=== PATIENT | male | born 1970 ===

== ENCOUNTER 2017-05-01 18:55 | Inpatient (IN) | payer OTHER ==
--- NOTE | 2017-05-01 19:20 | C.PDOC ---
History Of Present Illness Pt presents with some right facial droop starting since 9AM. Pt has also been having a headache for the last 2 days. No nausea, vomiting, chest pain, palpitations. Time Seen by Provider: 05/01/17 19:16 Chief Complaint (Nursing): Weakness/Neurological Deficit History Per: Patient History/Exam Limitations: no limitations Onset/Duration Of Symptoms: Hrs (10), Gradual Current Symptoms Are (Timing): Still Present Seizure Or Post-ictal Symptoms: None Severity: Mild Pain Scale Rating Of: 2 Recent travel outside of the [facility]: No Additional History Per: Patient - Symptoms Of CVA Associated Symptoms: denies: Impaired Speech, Decreased Ability To Walk Character Of Deficits: Right: Weakness (mild right facial droop), Face: Weakness Recent Aspirin Use: No Current Coumadin Use?: No Recent Head Trauma: No Past Medical History Reviewed: Historical Data, Nursing Documentation, Vital Signs Vital Signs: Last Vital Signs Temp 98.1 F 05/01/17 19:08 Pulse 71 05/01/17 19:08 Resp 18 05/01/17 19:08 BP 148/89 05/01/17 19:08 Pulse Ox 97 05/01/17 21:24 - Medical History PMH: Denies: Chronic Kidney Disease Family History: States: No Known Family Hx - Social History Hx Alcohol Use: No Hx Substance Use: No Review Of Systems Constitutional: Negative for: Fever, Chills Eyes: Negative for: Redness ENT: Negative for: Throat Pain Cardiovascular: Negative for: Chest Pain Respiratory: Negative for: Shortness of Breath Gastrointestinal: Negative for: Nausea, Vomiting, Abdominal Pain Genitourinary: Negative for: Dysuria Musculoskeletal: Negative for: Back Pain Skin: Negative for: Rash Neurological: Positive for: Headache. Negative for: Altered Mental Status, Dizziness Psych: Negative for: Anxiety Physical Exam - Physical Exam Appears: Non-toxic, No Acute Distress Skin: Warm, Dry Head: Normacephalic Eye(s): bilateral: Normal Inspection, PERRL, EOMI Nose: Normal Oral Mucosa: Moist Tongue: Normal Appearing Throat: No Erythema Neck: Trachea Midline, Supple Chest: Symmetrical Cardiovascular: Rhythm Regular Respiratory: No Rales, No Rhonchi, No Wheezing Gastrointestinal/Abdominal: Soft, No Tenderness, No Distention Back: Normal Inspection Extremity: No Tenderness, No Pedal Edema Extremity: Bilateral: Atraumatic, Normal Color And Temperature, Normal ROM Pulses: Left Dorsalis Pedis: Normal, Right Dorsalis Pedis: Normal Neurological/Psych: Oriented x3, Normal Speech, Normal Cognition, Normal Sensation, Other (mild right facial droop) Gait: Steady ED Course And Treatment - Laboratory Results Result Diagrams: 05/01/17 19:56 05/01/17 19:56 O2 Sat by Pulse Oximetry: 97 Pulse Ox Interpretation: Normal - Radiology CXR: Interpreted by Me, Viewed By Me CXR Interpretation: No: Infiltrates, Fracture, Pnemothorax Critical Care Time - Critical Care Note Total Time (in mins): 30 Documented critical care: time excludes all time spent performing seperately billable procedures. NIHSS Stroke Scale 2 - Date/Time Evaluation Performed Date Performed: 05/01/17 Time Performed: 19:01 When Was NIHSS Performed: Baseline - How Severe is the Stroke Level of Consciousness: 0=Alert LOC to Questions: 0=Both comments correct LOC to commands: 0=Obeys both correctly Best Gaze: 0=Normal Visual: 0=No visual loss Facial: 1=Minor asymmetry Motor Arm - Left: 0=No drift Motor Arm - Right: 0=No drift Motor Leg - Left: 0=No drift Motor Leg - Right: 0=No drift Limb Ataxia: 0=Absent Sensory: 0=Normal Best Language: 0=No aphasia Dysarthia: 0=Normal articulation Extinction & Inattention (Neglect): 0=Normal, no object Score: 1 Medical Decision Making Medical Decision Making: Progress Notes: CT Head: IMPRESSION: No acute findings. Disposition Discussed With : Alcon Davison Comment: accepted the pt on his service and took over the care at 12:29AM Doctor Will See Patient In The: ED Counseled Patient/Family Regarding: Studies Performed, Diagnosis - Disposition Disposition: HOSPITALIZED Disposition Time: 19:20 Condition: FAIR Forms: [employer] ([place]) - POA Present On Arrival: Poor Glycemic Control - Clinical Impression Clinical Impression: TIA (transient ischemic attack), Headache Decision To Admit - Pt Status Changed To: Hospital Disposition Of: Inpatient - Admit Certification Admit to Inpatient:: After my assessment, the patient will require hospitalization for at least two midnights. This is because of the severity of symptoms shown, intensity of services needed, and/or the medical risk in this patient being treated as an outpatient. - InPatient: Physician Admission Certification: I certify that this patient requires 2 or more midnights of care for the following reason:: After my assessment, the patient will require hospitalization for at least two midnights. This is because of the severity of symptoms shown, intensity of services needed, and/or the medical risk in this patient being treated as an outpatient. - . Bed Request Type: Telemetry Admitting Physician: Alcon Davison Patient Diagnosis: TIA (transient ischemic attack), Headache
[2017-05-01] MEDS ORDERED: Iodixanol 320 MG/ML 100 ML BOTTLE IV ONE (19:21)
[2017-05-01 20:01] LABS: BASO # 0.1 K/uL (0.0-0.2); BASO % 0.9 % (0.0-2.0); EOS # 0.4 K/uL (0.0-0.7); EOS % 5.5 % (0.0-4.0); HEMOGLOBIN 15.2 g/dL (12.0-18.0); LYMPH # 2.1 K/uL (1.0-4.3); MEAN CELL VOLUME 84.3 fL (80.0-94.0); MEAN CORPUSCULAR HEMOGLOBIN 29.4 pg (27.0-31.0); MEAN CORPUSCULAR HGB CONC 34.9 g/dL (33.0-37.0); MEAN PLATELET VOLUME 9.6 fL (7.2-11.7); MONO # 0.6 K/uL (0.0-0.8); MONO % 8.7 % (0.0-10.0); NEUT # 3.9 K/uL (1.8-7.0); NEUT % 54.9 % (50.0-75.0); NRBC % 0.2 % (0.0-2.0); RBC 5.17 Mil/uL (4.40-5.90); RED CELL DISTRIBUTION WIDTH 13.3 % (11.5-14.5); WHITE BLOOD COUNT 7.2 K/uL (4.8-10.8)
[2017-05-01 20:09] LABS: PROTHROMBIN TIME 11.8 SECONDS (9.7-12.2)
[2017-05-01 20:13] LABS: ALB/GLOB RATIO 1.1 (1.0-2.1); ALBUMIN 4.1 g/dL (3.5-5.0); ALT/SGPT 90 U/L (21-72); AST/SGOT 41 U/L (17-59); BLOOD UREA NITROGEN 13 mg/dL (9-20); CALCIUM 8.6 mg/dl (8.6-10.4); GFR AFRICAN-AMERICAN > 60; GFR NON-AFRICAN AMERICAN > 60; HDL CHOLESTEROL 40 mg/dL (30-70)
[2017-05-01 20:14] VITALS: BMI 29.2
--- NOTE | 2017-05-01 20:16 | CT ---
EXAM: CT Head With Intravenous Contrast CLINICAL HISTORY: 46 years old, male; Signs and symptoms; Numbness; Additional info: Numbness, facial droop TECHNIQUE: Axial computed tomography images of the head with intravenous contrast during the arterial phase of enhancement. All CT scans at this facility use one or more dose reduction techniques, viz.: automated exposure control; ma/kV adjustment per patient size (including targeted exams where dose is matched to indication; i.e. head); or iterative reconstruction technique. Coronal and sagittal reformatted images were created and reviewed. CONTRAST: 100 mL of [id number] administered intravenously. COMPARISON: No relevant prior studies available. FINDINGS: Right internal carotid artery: No acute findings. Intracranial segment is patent with no significant stenosis. No aneurysm. Right anterior cerebral artery: Unremarkable. No occlusion or significant stenosis. No aneurysm. Right middle cerebral artery: Unremarkable. No occlusion or significant stenosis. No aneurysm. Right posterior cerebral artery: Unremarkable. No occlusion or significant stenosis. No aneurysm. Right vertebral artery: Unremarkable as visualized. Left internal carotid artery: No acute findings. Intracranial segment is patent with no significant stenosis. No aneurysm. Left anterior cerebral artery: Unremarkable. No occlusion or significant stenosis. No aneurysm. Left middle cerebral artery: Unremarkable. No occlusion or significant stenosis. No aneurysm. Left posterior cerebral artery: Unremarkable. No occlusion or significant stenosis. No aneurysm. Left vertebral artery: Unremarkable as visualized. Basilar artery: Unremarkable. No occlusion or significant stenosis. No aneurysm. Other vasculature: A tiny bubble of air is noted within the main pulmonary artery related to the contrast injection. IMPRESSION: 1. No acute findings. EXAM: CT Neck With Intravenous Contrast EXAM DATE/TIME: Exam ordered 05/01/2017 7:17 PM CLINICAL HISTORY: 46 years old, male; Signs and symptoms; Numbness; Additional info: Numbness, facial droop TECHNIQUE: Axial computed tomography images of the neck with intravenous contrast during the arterial phase of contrast enhancement. All CT scans at this facility use one or more dose reduction techniques, viz.: automated exposure control; ma/kV adjustment per patient size (including targeted exams where dose is matched to indication; i.e. head); or iterative reconstruction technique. CONTRAST: 100 mL of [id number] administered intravenously. COMPARISON: CT - HEAD W/O (CODE STROKE) 2017-05-01 19:22 FINDINGS: VASCULATURE: Right common carotid artery: Unremarkable. No significant stenosis. No dissection or occlusion. Right internal carotid artery: Unremarkable. Extracranial segment is patent with no significant stenosis. No dissection or occlusion. Right external carotid artery: Unremarkable. No occlusion. Right vertebral artery: Unremarkable. No significant stenosis. No dissection or occlusion. Left common carotid artery: Unremarkable. No significant stenosis. No dissection or occlusion. Left internal carotid artery: Unremarkable. Extracranial segment is patent with no significant stenosis. No dissection or occlusion. Left external carotid artery: Unremarkable. No occlusion. Left vertebral artery: Unremarkable. No significant stenosis. No dissection or occlusion. NECK: Bones/joints: No acute fracture. No dislocation. Soft tissues: Unremarkable as visualized. No mass. Sinuses: Mucosal thickening is noted within the maxillary sinuses bilaterally. Mucosal thickening extends into the ethmoid air cells bilaterally and the floor of the frontal sinuses CAROTID STENOSIS REFERENCE USING NASCET CRITERIA: % ICA stenosis = (1 - narrowest ICA diameter/diameter of distal cervical ICA) x 100. Mild - <50% stenosis. Moderate - 50-69% stenosis. Severe - 70-94% stenosis. Near occlusion - 95-99% stenosis. Occluded - 100% stenosis. IMPRESSION: 1. Normal CTA of the neck 2. Chronic sinusitis involving the ethmoid, maxillary and frontal sinuses.
[2017-05-01 20:24] LABS: LDL CHOLESTEROL 114 mg/dL (0-129)
[2017-05-01] MEDS: Sodium Chloride 0.9% 1,000 ML IV SCH (21:00)
--- NOTE | 2017-05-02 03:19 | CP.PCM.HP ---
<RafiSubhashMisty - Last Filed: 05/02/17 03:11> History of Present Illness - History of Present Illness History of Present Illness: CC: right facial numbness HPI: Patient is a 46 year old Mauritian speaking male with no significant PMH who presents to the ED complaining of right facial numbness that started yesterday morning around 9 am while he was at work. Patient says he was not doing anything in particular when he started noticing right eye twitching and numbness from his eye to his cheek. Patient says he has never had this before. It has been unchanged since onset. Patient admits to occipital headache of 2 days duration, for which tylenol provided no relief. Patient admits to associated difficulty in pronouncing words but does not feel like his speech is slurred. He also admits to right shoulder numbness as if it is "asleep". Patient says he occasionally has b/l foot swelling at night but otherwise denies fever, chills, dizziness, changes in vision/hearing, difficulty swallowing, chest pain, SOB, palpitations, abdominal pain, n/v/d/c, changes in urination, and numbness/tingling/weakness/pain in his extremities other than described above. PMH: denies Meds: denies Allergies: denies PSH: cholecystectomy, appendectomy FH: cousin of unknown cancer SH: usually drinks only on special occasions, admits to drinking 4 beers yesterday; denies tobacco and recreational drug use Present on Admission - Present on Admission Any Indicators Present on Admission: No Review of Systems - Review of Systems All systems: reviewed and no additional remarkable complaints except (as per HPI ) Past Patient History - Infectious Disease Hx of Infectious Diseases: None - Past Social History Smoking Status: Never Smoked - CARDIAC Hx Cardiac Disorders: No - PULMONARY Hx Respiratory Disorders: No - NEUROLOGICAL Hx Neurological Disorder: No - HEENT Hx HEENT Problems: No - RENAL Hx Chronic Kidney Disease: No - ENDOCRINE/METABOLIC Hx Endocrine Disorders: No - HEMATOLOGICAL/ONCOLOGICAL Hx Blood Disorders: No - INTEGUMENTARY Hx Dermatological Problems: No - MUSCULOSKELETAL/RHEUMATOLOGICAL Hx Musculoskeletal Disorders: No - GASTROINTESTINAL Hx Gastrointestinal Disorders: No - GENITOURINARY/GYNECOLOGICAL Hx Genitourinary Disorders: No - PSYCHIATRIC Hx Substance Use: No - SURGICAL HISTORY Hx Surgeries: No - ANESTHESIA Hx Anesthesia: No Meds Allergies/Adverse Reactions: Allergies Allergy/AdvReac Type Severity Reaction Status Date / Time No Known Allergies Allergy Verified 05/01/17 19:20 Physical Exam - Constitutional Appears: Non-toxic, No Acute Distress - Head Exam Head Exam: ATRAUMATIC, NORMAL INSPECTION, NORMOCEPHALIC - Eye Exam Eye Exam: EOMI, Normal appearance, PERRL - ENT Exam ENT Exam: Mucous Membranes Moist, Normal Oropharynx - Neck Exam Neck exam: Positive for: Normal Inspection - Respiratory Exam Respiratory Exam: Clear to Auscultation Bilateral, NORMAL BREATHING PATTERN. absent: Accessory Muscle Use, Rales, Rhonchi, Wheezes, Respiratory Distress - Cardiovascular Exam Cardiovascular Exam: RRR, +S1, +S2. absent: Bradycardia, Tachycardia, Diastolic murmur, Gallop, Rubs, Systolic Murmur - GI/Abdominal Exam GI & Abdominal Exam: Normal Bowel Sounds, Soft. absent: Distended, Guarding, Tenderness - Extremities Exam Extremities exam: Positive for: normal capillary refill, normal inspection, pedal pulses present. Negative for: calf tenderness, pedal edema - Back Exam Back exam: NORMAL INSPECTION - Neurological Exam Neurological exam: Alert, Oriented x3 Additional comments: weakness of left orbicularis oculi as compared to the right - Expanded Neurological Exam Expanded Patient oriented to: person, place, time Speech: Fluid Speech Cranial nerves: EOM's Intact: Normal, Facial Palsey w/Forehead Movement: Normal , Facial Palsey w/o Forehead Movement: Normal, Facial Sensation: Abnormal Right (decreased on right) Upper motor neuron: Pronator Drift: Normal, Sensory Extinction: Normal Sensory exam: Lower Extremity Light Touch: Normal, Upper Extremity Light Touch: Normal Neuro motor strength exam: Left Upper Extremity: 5, Right Upper Extremity: 5, Left Lower Extremity: 5, Right Lower Extremity: 5 Coma Scale Eye Opening: SPONTANEOUS Coma Scale Motor Response: OBEYS COMMANDS Coma Scale Verbal: Oriented Coma Scale Total: 15 - Psychiatric Exam Psychiatric exam: Normal Affect, Normal Mood - Skin Skin Exam: Dry, Intact, Normal Color, Warm Results - Vital Signs Recent Vital Signs: Last Vital Signs Temp 98.2 F 05/02/17 00:34 Pulse 56 L 05/02/17 00:34 Resp 16 05/02/17 00:34 BP 138/73 05/02/17 00:34 Pulse Ox 100 05/02/17 00:34 - Labs Result Diagrams: 05/01/17 19:56 05/01/17 19:56 Labs: Laboratory Results - last 24 hr 05/01/17 05/01/17 05/01/17 19:14 19:56 19:56 WBC 7.2 RBC 5.17 Hgb 15.2 Hct 43.6 MCV 84.3 MCH 29.4 MCHC 34.9 RDW 13.3 Plt Count 186 MPV 9.6 Neut % (Auto) 54.9 Lymph % (Auto) 30.0 [place] % (Auto) 8.7 Eos % (Auto) 5.5 H Baso % (Auto) 0.9 Neut # (Auto) 3.9 Lymph # (Auto) 2.1 [place] # (Auto) 0.6 Eos # (Auto) 0.4 Baso # (Auto) 0.1 PT 11.8 INR 1.0 APTT 35 H Sodium Potassium Chloride Carbon Dioxide Anion Gap BUN Creatinine Est GFR ( Amer) Est GFR (Non-Af Amer) POC Glucose (mg/dL) 111 H Random Glucose Calcium Total Bilirubin AST ALT Alkaline Phosphatase Troponin I Total Protein Albumin Globulin Albumin/Globulin Ratio Triglycerides Cholesterol LDL Cholesterol Direct HDL Cholesterol Blood Type Antibody Screen 05/01/17 05/01/17 19:56 19:56 WBC RBC Hgb Hct MCV MCH MCHC RDW Plt Count MPV Neut % (Auto) Lymph % (Auto) [place] % (Auto) Eos % (Auto) Baso % (Auto) Neut # (Auto) Lymph # (Auto) [place] # (Auto) Eos # (Auto) Baso # (Auto) PT INR APTT Sodium 139 Potassium 3.6 Chloride 101 Carbon Dioxide 25 Anion Gap 17 BUN 13 Creatinine 0.8 Est GFR ( Amer) > 60 Est GFR (Non-Af Amer) > 60 POC Glucose (mg/dL) Random Glucose 115 H Calcium 8.6 Total Bilirubin 1.2 AST 41 ALT 90 H Alkaline Phosphatase 84 Troponin I < 0.0120 Total Protein 7.7 Albumin 4.1 Globulin 3.6 Albumin/Globulin Ratio 1.1 Triglycerides 193 H Cholesterol 183 LDL Cholesterol Direct 114 HDL Cholesterol 40 Blood Type O POSITIVE Antibody Screen Negative Assessment & Plan (1) TIA (transient ischemic attack) Assessment and Plan: * ASA 325 mg given in ED * Vitals stable * Admit to telemetry * Neurovascular consulted, Dr. Woodward; help appreciated * Neurology consulted, Dr. 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 * Lipid panel: Trig 193, Chol 183, LDL 114, HDL 40 * HbA1c * Trop <0.0120 - f/u trend * ESR * BNP * CRP * CPK * Thyroid studies * Vitamin B12 Imaging * CT head * CTA Head/Neck: normal * CXR * MRI brain * Echo Meds: * Crestor 2.5 mg PO HS * ASA 81 mg daily Status: Acute (2) Headache Assessment and Plan: * BP stable * Tylenol PRN * Imaging as above Status: Acute (3) Prophylactic measure Assessment and Plan: * GI: pepcid * DVT: SCDs, r/o intracranial bleed before anticoagulation Status: Acute <Alcon Davison - Last Filed: 05/02/17 06:32> Results - Vital Signs Recent Vital Signs: Last Vital Signs Temp 98.4 F 05/02/17 04:52 Pulse 57 L 05/02/17 04:52 Resp 16 05/02/17 04:52 BP 110/66 05/02/17 04:52 Pulse Ox 98 05/02/17 04:52 - Labs Result Diagrams: 05/01/17 19:56 05/01/17 19:56 Labs: Laboratory Results - last 24 hr 05/01/17 05/01/17 05/01/17 19:14 19:56 19:56 WBC 7.2 RBC 5.17 Hgb 15.2 Hct 43.6 MCV 84.3 MCH 29.4 MCHC 34.9 RDW 13.3 Plt Count 186 MPV 9.6 Neut % (Auto) 54.9 Lymph % (Auto) 30.0 [place] % (Auto) 8.7 Eos % (Auto) 5.5 H Baso % (Auto) 0.9 Neut # (Auto) 3.9 Lymph # (Auto) 2.1 [place] # (Auto) 0.6 Eos # (Auto) 0.4 Baso # (Auto) 0.1 PT 11.8 INR 1.0 APTT 35 H Sodium Potassium Chloride Carbon Dioxide Anion Gap BUN Creatinine Est GFR ( Amer) Est GFR (Non-Af Amer) POC Glucose (mg/dL) 111 H Random Glucose Calcium Total Bilirubin AST ALT Alkaline Phosphatase Troponin I Total Protein Albumin Globulin Albumin/Globulin Ratio Triglycerides Cholesterol LDL Cholesterol Direct HDL Cholesterol Blood Type Antibody Screen 05/01/17 05/01/17 19:56 19:56 WBC RBC Hgb Hct MCV MCH MCHC RDW Plt Count MPV Neut % (Auto) Lymph % (Auto) [place] % (Auto) Eos % (Auto) Baso % (Auto) Neut # (Auto) Lymph # (Auto) [place] # (Auto) Eos # (Auto) Baso # (Auto) PT INR APTT Sodium 139 Potassium 3.6 Chloride 101 Carbon Dioxide 25 Anion Gap 17 BUN 13 Creatinine 0.8 Est GFR ( Amer) > 60 Est GFR (Non-Af Amer) > 60 POC Glucose (mg/dL) Random Glucose 115 H Calcium 8.6 Total Bilirubin 1.2 AST 41 ALT 90 H Alkaline Phosphatase 84 Troponin I < 0.0120 Total Protein 7.7 Albumin 4.1 Globulin 3.6 Albumin/Globulin Ratio 1.1 Triglycerides 193 H Cholesterol 183 LDL Cholesterol Direct 114 HDL Cholesterol 40 Blood Type O POSITIVE Antibody Screen Negative Assessment & Plan - Date & Time Date: 05/02/17 (I have seen and examined the patient. I agree with the findings and plan of care as documented by Dr. Mckee. Patient with TIA and headache. Code stroke called in ED. Consult to neuro. MRI brain in AM. ROMIx3 with EKG. 2D Echo. Monitor for acute changes.) Time: 06:32 Attending/Attestation - Attestation I have personally seen and examined this patient.: Yes I have fully participated in the care of the patient.: Yes I have reviewed all pertinent clinical information: Yes
[2017-05-02] MEDS: Sodium Chloride 0.9% 1,000 ML IV SCH ×2 (07:29→18:29)
[2017-05-02 07:52] LABS: MEAN CELL VOLUME 85.8 fL (80.0-94.0); MEAN CORPUSCULAR HEMOGLOBIN 30.5 pg (27.0-31.0); MEAN CORPUSCULAR HGB CONC 35.5 g/dL (33.0-37.0); MEAN PLATELET VOLUME 9.7 fL (7.2-11.7); RBC 5.25 Mil/uL (4.40-5.90); RED CELL DISTRIBUTION WIDTH 13.3 % (11.5-14.5); WHITE BLOOD COUNT 6.7 K/uL (4.8-10.8)
[2017-05-02 08:20] LABS: ALB/GLOB RATIO 1.1 (1.0-2.1); ALBUMIN 3.9 g/dL (3.5-5.0); ALT/SGPT 72 U/L (21-72); AST/SGOT 43 U/L (17-59); BLOOD UREA NITROGEN 13 mg/dL (9-20); CALCIUM 8.9 mg/dl (8.6-10.4); GFR AFRICAN-AMERICAN > 60; GFR NON-AFRICAN AMERICAN > 60
[2017-05-02 08:24] LABS: CK-MB 0.86 ng/mL (0.0-3.38)
[2017-05-02 08:30] LABS: B-TYPE NATRIURETIC PEPTIDE 15.3 pg/mL (0-450)
--- NOTE | 2017-05-02 08:31 | CT ---
PROCEDURE: CT HEAD WITHOUT CONTRAST. HISTORY: Code Stroke COMPARISON: None available. TECHNIQUE: Axial computed tomography images were obtained through the head/brain without intravenous contrast. Radiation dose: Total exam DLP = 1085.9 mGy-cm. This CT exam was performed using one or more of the following dose reduction techniques: Automated exposure control, adjustment of the mA and/or kV according to patient size, and/or use of iterative reconstruction technique. FINDINGS: HEMORRHAGE: No intracranial hemorrhage. BRAIN: No mass effect or edema. No atrophy or chronic microvascular ischemic changes. VENTRICLES: Unremarkable. No hydrocephalus. CALVARIUM: Unremarkable. PARANASAL SINUSES: Unremarkable as visualized. No significant inflammatory changes. MASTOID AIR CELLS: Unremarkable as visualized. No inflammatory changes. OTHER FINDINGS: None. IMPRESSION: No acute intracranial pathology.
--- NOTE | 2017-05-02 08:36 | RAD ---
HISTORY: Code Stroke COMPARISON: No prior. FINDINGS: LUNGS: No active pulmonary disease. PLEURA: No significant pleural effusion identified, no pneumothorax apparent. CARDIOVASCULAR: Normal. OSSEOUS STRUCTURES: No significant abnormalities. VISUALIZED UPPER ABDOMEN: Normal. OTHER FINDINGS: None. IMPRESSION: No active disease.
[2017-05-02 08:46] LABS: T3 1.88 nmol/L (1.49-2.60)
--- NOTE | 2017-05-02 16:06 | CP.PCM.PN ---
<Faustino Mcnamara - Last Filed: 05/02/17 16:14> Subjective - Date & Time of Evaluation Date of Evaluation: 05/02/17 Time of Evaluation: 16:00 - Subjective Subjective: Progress note. Pt seen and examined at bedside. No acute distress. No fevers, chills, vomiting , diarrhea. Still experiencing numbness and weakness of right face. Neuro johnson in progress. Objective - Vital Signs/Intake and Output Vital Signs (last 24 hours): Temp Pulse Resp BP Pulse Ox 98.6 F 61 18 123/75 97 05/02/17 15:15 05/02/17 15:15 05/02/17 15:15 05/02/17 15:15 05/02/17 15:15 - Medications Medications: Current Medications Acetaminophen (Tylenol 325mg Tab) 650 mg PO Q6 PRN PRN Reason: Headache Last Admin: 05/02/17 08:07 Dose: 650 mg Aspirin (Aspirin Chewable) 81 mg PO DAILY [facility] Last Admin: 05/02/17 09:55 Dose: 81 mg Famotidine (Pepcid) 20 mg PO BID [facility] Last Admin: 05/02/17 09:56 Dose: 20 mg Sodium Chloride (Sodium Chloride 0.9%) 1,000 mls @ 100 mls/hr IV .Q10H [facility] Last Admin: 05/02/17 07:29 Dose: 100 mls/hr Rosuvastatin Calcium (Crestor) 2.5 mg PO HS [facility] - Labs Labs: 05/02/17 07:45 05/02/17 07:45 PT 11.8 SECONDS (9.7-12.2) 05/01/17 19:56 INR 1.0 05/01/17 19:56 APTT 35 SECONDS (21-34) H 05/01/17 19:56 - Constitutional Appears: Non-toxic, No Acute Distress - Head Exam Head Exam: ATRAUMATIC, NORMOCEPHALIC. absent: NORMAL INSPECTION - Eye Exam Eye Exam: EOMI - ENT Exam ENT Exam: Mucous Membranes Moist - Neck Exam Neck Exam: Full ROM, Normal Inspection - Respiratory Exam Respiratory Exam: NORMAL BREATHING PATTERN. absent: Respiratory Distress - Cardiovascular Exam Cardiovascular Exam: +S1, +S2 - GI/Abdominal Exam GI & Abdominal Exam: Soft, Normal Bowel Sounds. absent: Tenderness - Extremities Exam Extremities Exam: Full ROM, Normal Inspection - Neurological Exam Neurological Exam: Alert, Awake, CN II-XII Intact, Oriented x3 Neuro motor strength exam: Left Upper Extremity: 5, Right Upper Extremity: 5, Left Lower Extremity: 5, Right Lower Extremity: 5 Additional comments: no dysmetria no dysdiadokinesia no Babinski weakness on right face along with decreased sensation to light touch on right side of face intact on rest of body gait unassessed - Psychiatric Exam Psychiatric exam: Normal Affect, Normal Mood - Skin Skin Exam: Dry, Intact, Normal Color, Warm Assessment and Plan - Assessment and Plan (Free Text) Assessment: 1. TIA/stroke -starting pt on asa 81 mg po daily -crestor 2.5 mg po hs -admit to tele -Neurovascular consulted, Dr. Woodward; help appreciated -Neurology consulted, Dr. Gonzalez; help appreciated -Neuro checks -PT/OT -swallow evaluation -Lipid panel: TGs 193, total cholesterol 183, LDL 114, HDL 40 -HbA1c is 5.2 -TSH normal -trops negative x 2. -head CT negative -normal cta of neck -chronic sinusitis cta of head -cxr negative -ekg pending -IVF NS 100 cc/hr -HIV negative -MRI ordered -echo pending 2. Chronic sinusitis -continue to monitor 3. Headache -blood pressure stable. -tylenol prn -head ct negative -chronic sinusitis as above. -continue to monitor. 4. GI/DVT ppx -SCDs -pepcid bid discussed with Dr. Perez. <Elisabeth Perez V - Last Filed: 05/03/17 21:17> Objective - Vital Signs/Intake and Output Vital Signs (last 24 hours): Temp Pulse Resp BP Pulse Ox 98.5 F 66 22 123/71 93 L 05/03/17 17:00 05/03/17 19:00 05/03/17 19:00 05/03/17 18:24 05/03/17 19:00 Intake and Output: 05/03/17 05/04/17 18:59 06:59 Intake Total 5640 0 Output Total 5550 Balance 90 0 - Medications Medications: Current Medications Acetaminophen (Tylenol 325mg Tab) 650 mg PO Q6 PRN PRN Reason: Headache Last Admin: 05/03/17 15:59 Dose: 650 mg Aspirin (Aspirin Chewable) 81 mg PO DAILY [facility] Last Admin: 05/03/17 09:26 Dose: 81 mg Enoxaparin Sodium (Lovenox) 40 mg SC DAILY [facility] Last Admin: 05/03/17 09:26 Dose: 40 mg Famotidine (Pepcid) 20 mg PO BID [facility] Last Admin: 05/03/17 17:08 Dose: 20 mg Rosuvastatin Calcium (Crestor) 10 mg PO HS [facility] - Labs Labs: 05/03/17 06:54 05/03/17 06:54 PT 11.8 SECONDS (9.7-12.2) 05/01/17 19:56 INR 1.0 05/01/17 19:56 APTT 35 SECONDS (21-34) H 05/01/17 19:56 Attending/Attestation - Attestation I have personally seen and examined this patient.: Yes I have fully participated in the care of the patient.: Yes I have reviewed all pertinent clinical information, including history, physical exam and plan: Yes Notes (Text): This is late computer entry for 05/02/17. Patient seen, examined and case discussed with day-time resident. Patient seen in the ED awaiting bed downstairs. Patient denies headache, denies photophobia, denies chest pain, denies palpitations, denies shortness of breathe , denies nausea, denies vomitting, denies abdominal pain, denies diarrhea, denies trauma to the face, denies anything going into the eye. Patient reports pain/change in sensation around the right eye, right cheek and at the mouth. Patient is able to lift both eyebrows repeatedly . Patient denies personal history of any medical problems, denies recent travel. Case discussed with neurology, recommended for Brain MRI w and w/o contrast; telemetry given bradycardia, and Decadron 10mg IVX1 to see if helps to alleviate patient's symptoms. Patient's EKG shows bradycardia HR 50s, advised EKG and COSME, Q6 h X2. TSH is within normal limits Assessment/Plan 1. Right Side Facial weakness/Numbness * Possible [place] palsy? * Admit to telemetry * starting pt on asa 81 mg po daily * crestor 2.5 mg po hs * Neurology consulted, Dr. Gonzalez; help appreciated * Neuro checks * PT/OT * swallow evaluation * Lipid panel: TGs 193, total cholesterol 183, LDL 114, HDL 40 * HbA1c is 5.2 * TSH normal * trops negative x 2. * head CT negative * normal cta of neck * chronic sinusitis cta of head * cxr negative * ekg: sinus bradycardia * IVF NS 100 cc/hr * HIV negative * Brain MRI ordered with and without contrast * echo pending 2. Chronic sinusitis * continue to monitor 3. Headache-->does not have 4. GI/DVT ppx * SCDs * pepcid 20mg PO bid
[2017-05-02] MEDS ORDERED: Dexamethasone 4 mg/1 ml IV STA ×2 (17:07→18:15)
--- NOTE | 2017-05-02 17:28 | CP.PCM.CON ---
History of Present Illness - History of Present Illness History of Present Illness: Mr. Glover is a 46-year-old man with no significant past medical history, who states that he developed left facial discomfort yesterday morning at around 9 AM. He went to work and felt that his eye was feeling strange. Afterward, the right side of his mouth was slightly drooped, according to his . These symptoms continued. He came to the ED and yesterday evening a stroke alert was initiated. He did not have any other focal weakness and the facial droop was not appreciated on exam. He complained of numbness of the right side of the face still. NIHSS was 1. CT scan of the head did not show any acute findings. Review of Systems - Review of Systems All systems: reviewed and no additional remarkable complaints except Past Patient History - Infectious Disease Hx of Infectious Diseases: None - Past Social History Smoking Status: Never Smoked - CARDIAC Hx Cardiac Disorders: No - PULMONARY Hx Respiratory Disorders: No - NEUROLOGICAL Hx Neurological Disorder: No - HEENT Hx HEENT Problems: No - RENAL Hx Chronic Kidney Disease: No - ENDOCRINE/METABOLIC Hx Endocrine Disorders: No - HEMATOLOGICAL/ONCOLOGICAL Hx Blood Disorders: No - INTEGUMENTARY Hx Dermatological Problems: No - MUSCULOSKELETAL/RHEUMATOLOGICAL Hx Musculoskeletal Disorders: No - GASTROINTESTINAL Hx Gastrointestinal Disorders: No - GENITOURINARY/GYNECOLOGICAL Hx Genitourinary Disorders: No - PSYCHIATRIC Hx Substance Use: No - SURGICAL HISTORY Hx Surgeries: No - ANESTHESIA Hx Anesthesia: No Meds Allergies/Adverse Reactions: Allergies Allergy/AdvReac Type Severity Reaction Status Date / Time No Known Allergies Allergy Verified 05/01/17 19:20 - Medications Medications: Current Medications Acetaminophen (Tylenol 325mg Tab) 650 mg PO Q6 PRN PRN Reason: Headache Last Admin: 05/02/17 08:07 Dose: 650 mg Aspirin (Aspirin Chewable) 81 mg PO DAILY [facility] Last Admin: 05/02/17 09:55 Dose: 81 mg Enoxaparin Sodium (Lovenox) 40 mg SC DAILY [facility] Famotidine (Pepcid) 20 mg PO BID [facility] Last Admin: 05/02/17 09:56 Dose: 20 mg Sodium Chloride (Sodium Chloride 0.9%) 1,000 mls @ 100 mls/hr IV .Q10H [facility] Last Admin: 05/02/17 07:29 Dose: 100 mls/hr Rosuvastatin Calcium (Crestor) 2.5 mg PO HS [facility] Physical Exam - Neurological Exam Neurological exam: Alert, CN II-XII Intact, Normal Gait, Oriented x3, Reflexes Normal Additional comments: Possible right CN 7 partial palsy. Otherwise, normal neuro exam. Results - Vital Signs Recent Vital Signs: Last Vital Signs Temp 98.4 F 05/02/17 16:18 Pulse 65 05/02/17 16:18 Resp 18 05/02/17 16:18 BP 140/85 05/02/17 16:18 Pulse Ox 98 05/02/17 16:18 - Labs Result Diagrams: 05/02/17 07:45 05/02/17 07:45 Labs: Laboratory Results - last 24 hr 05/01/17 05/01/17 05/01/17 19:14 19:56 19:56 WBC 7.2 RBC 5.17 Hgb 15.2 Hct 43.6 MCV 84.3 MCH 29.4 MCHC 34.9 RDW 13.3 Plt Count 186 MPV 9.6 Neut % (Auto) 54.9 Lymph % (Auto) 30.0 Sutter % (Auto) 8.7 Eos % (Auto) 5.5 H Baso % (Auto) 0.9 Neut # (Auto) 3.9 Lymph # (Auto) 2.1 Sutter # (Auto) 0.6 Eos # (Auto) 0.4 Baso # (Auto) 0.1 ESR PT 11.8 INR 1.0 APTT 35 H Sodium Potassium Chloride Carbon Dioxide Anion Gap BUN Creatinine Est GFR ( Amer) Est GFR (Non-Af Amer) POC Glucose (mg/dL) 111 H Random Glucose Hemoglobin A1c Calcium Total Bilirubin AST ALT Alkaline Phosphatase Total Creatine Kinase CK-MB (Mass) Troponin I C-React Prot High Sens NT-Pro-B Natriuret Pep Total Protein Albumin Globulin Albumin/Globulin Ratio Triglycerides Cholesterol LDL Cholesterol Direct HDL Cholesterol Vitamin B12 Thyroxine (T4) Total T3 TSH 3rd Generation HIV 1&2 Antibody Screen Blood Type Antibody Screen 05/01/17 05/01/17 05/01/17 19:56 19:56 19:56 WBC RBC Hgb Hct MCV MCH MCHC RDW Plt Count MPV Neut % (Auto) Lymph % (Auto) Sutter % (Auto) Eos % (Auto) Baso % (Auto) Neut # (Auto) Lymph # (Auto) Sutter # (Auto) Eos # (Auto) Baso # (Auto) ESR PT INR APTT Sodium 139 Potassium 3.6 Chloride 101 Carbon Dioxide 25 Anion Gap 17 BUN 13 Creatinine 0.8 Est GFR ( Amer) > 60 Est GFR (Non-Af Amer) > 60 POC Glucose (mg/dL) Random Glucose 115 H Hemoglobin A1c 5.2 Calcium 8.6 Total Bilirubin 1.2 AST 41 ALT 90 H Alkaline Phosphatase 84 Total Creatine Kinase CK-MB (Mass) Troponin I < 0.0120 C-React Prot High Sens NT-Pro-B Natriuret Pep Total Protein 7.7 Albumin 4.1 Globulin 3.6 Albumin/Globulin Ratio 1.1 Triglycerides 193 H Cholesterol 183 LDL Cholesterol Direct 114 HDL Cholesterol 40 Vitamin B12 Thyroxine (T4) Total T3 TSH 3rd Generation HIV 1&2 Antibody Screen Blood Type O POSITIVE Antibody Screen Negative 05/02/17 05/02/17 05/02/17 07:45 07:45 07:45 WBC RBC Hgb Hct MCV MCH MCHC RDW Plt Count MPV Neut % (Auto) Lymph % (Auto) Sutter % (Auto) Eos % (Auto) Baso % (Auto) Neut # (Auto) Lymph # (Auto) Sutter # (Auto) Eos # (Auto) Baso # (Auto) ESR 2 PT INR APTT Sodium Potassium Chloride Carbon Dioxide Anion Gap BUN Creatinine Est GFR ( Amer) Est GFR (Non-Af Amer) POC Glucose (mg/dL) Random Glucose Hemoglobin A1c Calcium Total Bilirubin AST ALT Alkaline Phosphatase Total Creatine Kinase CK-MB (Mass) Troponin I C-React Prot High Sens 2.50 NT-Pro-B Natriuret Pep Total Protein Albumin Globulin Albumin/Globulin Ratio Triglycerides Cholesterol LDL Cholesterol Direct HDL Cholesterol Vitamin B12 456 Thyroxine (T4) 7.00 Total T3 1.88 TSH 3rd Generation 2.11 HIV 1&2 Antibody Screen Blood Type Antibody Screen 05/02/17 05/02/17 05/02/17 07:45 07:45 07:45 WBC 6.7 RBC 5.25 Hgb 16.0 Hct 45.1 MCV 85.8 MCH 30.5 MCHC 35.5 RDW 13.3 Plt Count 175 MPV 9.7 Neut % (Auto) Lymph % (Auto) Sutter % (Auto) Eos % (Auto) Baso % (Auto) Neut # (Auto) Lymph # (Auto) Sutter # (Auto) Eos # (Auto) Baso # (Auto) ESR PT INR APTT Sodium 140 Potassium 4.1 Chloride 105 Carbon Dioxide 24 Anion Gap 15 BUN 13 Creatinine 0.8 Est GFR ( Amer) > 60 Est GFR (Non-Af Amer) > 60 POC Glucose (mg/dL) Random Glucose 102 Hemoglobin A1c Calcium 8.9 Total Bilirubin 1.3 AST 43 ALT 72 Alkaline Phosphatase 80 Total Creatine Kinase 103 CK-MB (Mass) 0.86 Troponin I < 0.0120 C-React Prot High Sens NT-Pro-B Natriuret Pep 15.3 Total Protein 7.6 Albumin 3.9 Globulin 3.7 Albumin/Globulin Ratio 1.1 Triglycerides Cholesterol LDL Cholesterol Direct HDL Cholesterol Vitamin B12 Thyroxine (T4) Total T3 TSH 3rd Generation HIV 1&2 Antibody Screen Blood Type Antibody Screen 05/02/17 05/02/17 11:27 16:53 WBC RBC Hgb Hct MCV MCH MCHC RDW Plt Count MPV Neut % (Auto) Lymph % (Auto) Sutter % (Auto) Eos % (Auto) Baso % (Auto) Neut # (Auto) Lymph # (Auto) Sutter # (Auto) Eos # (Auto) Baso # (Auto) ESR PT INR APTT Sodium Potassium Chloride Carbon Dioxide Anion Gap BUN Creatinine Est GFR ( Amer) Est GFR (Non-Af Amer) POC Glucose (mg/dL) 84 Random Glucose Hemoglobin A1c Calcium Total Bilirubin AST ALT Alkaline Phosphatase Total Creatine Kinase CK-MB (Mass) Troponin I C-React Prot High Sens NT-Pro-B Natriuret Pep Total Protein Albumin Globulin Albumin/Globulin Ratio Triglycerides Cholesterol LDL Cholesterol Direct HDL Cholesterol Vitamin B12 Thyroxine (T4) Total T3 TSH 3rd Generation HIV 1&2 Antibody Screen Negative Blood Type Antibody Screen Assessment & Plan (1) Right facial numbness Assessment and Plan: Based on the patient's age and lack of risk factors, as well as atypical symptoms, the patient is unlikely to have a stroke. 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 An MRI of the brain with and without contrast (to rule out MS) , can be done to be certain, and if negative, we may start treatment for Woodruff's Palsy, if the patient would like treatment. A dose of decadron 10 mg IV once may help with the facial pain and discomfort in the mean time. To be on the safe side, 81 mg of aspirin can be given and we will continue telemetry since he was bradycardic (not symptomatic). Thank you. Status: Acute Priority: High
[2017-05-02] MEDS: Enoxaparin 40 mg Syringe SC SCH (18:23)
[2017-05-02 20:14] LABS: CK-MB 0.67 ng/mL (0.0-3.38)
[2017-05-02] MEDS ORDERED: Rosuvastatin Calcium 2.5 mg Tab PO SCH (22:00)
[2017-05-03 00:49] LABS: CK-MB 0.56 ng/mL (0.0-3.38)
[2017-05-03] MEDS: Sodium Chloride 0.9% 1,000 ML IV SCH ×4 (01:28→13:21)
--- NOTE | 2017-05-03 06:40 | CP.PCM.PN ---
Subjective - Date & Time of Evaluation Date of Evaluation: 05/03/17 Time of Evaluation: 06:35 - Subjective Subjective: Mr. Glover was seen and examined at the bedside. He remains alert, oriented in all spheres. He speaks mainly Mongolian, utilized bilingual interpreter ID # [id number]. He claims of experiencing headache located in his right periorbital area radiating to the parietal area. He describe the pain as 8/10 with blurred vision and photophobia . He states that sensation remains uneven with right facial side being numb including his right side lip area.He is able to answer all questions appropriately. He dre also follow simple commands. There was no untoward events overnight. Objective - Vital Signs/Intake and Output Vital Signs (last 24 hours): Temp Pulse Resp BP Pulse Ox 98.8 F 59 L 19 100/49 L 95 05/03/17 00:00 05/03/17 00:00 05/03/17 00:00 05/03/17 00:00 05/03/17 00:00 Intake and Output: 05/02/17 05/03/17 18:59 06:59 Intake Total 340 Output Total 800 Balance -460 - Medications Medications: Current Medications Acetaminophen (Tylenol 325mg Tab) 650 mg PO Q6 PRN PRN Reason: Headache Last Admin: 05/02/17 08:07 Dose: 650 mg Aspirin (Aspirin Chewable) 81 mg PO DAILY [facility] Last Admin: 05/02/17 09:55 Dose: 81 mg Dexamethasone (Decadron Inj) 10 mg IVP ONCE ONE Stop: 05/03/17 06:34 Enoxaparin Sodium (Lovenox) 40 mg SC DAILY [facility] Last Admin: 05/02/17 18:23 Dose: 40 mg Famotidine (Pepcid) 20 mg PO BID [facility] Last Admin: 05/02/17 18:23 Dose: 20 mg Sodium Chloride (Sodium Chloride 0.9%) 1,000 mls @ 100 mls/hr IV .Q10H [facility] Last Admin: 05/03/17 04:19 Dose: 100 mls/hr Magnesium Sulfate/Dextrose (Magnesium Sulfate 1 Gm/100 Ml D5w) 1 gm in 100 mls @ 300 mls/hr IVPB Q30M [facility] Stop: 05/03/17 07:34 Rosuvastatin Calcium (Crestor) 10 mg PO HS [facility] - Labs Labs: 05/02/17 07:45 03/04/18 07:45 PT 11.8 SECONDS (9.7-12.2) 05/01/17 19:56 INR 1.0 05/01/17 19:56 APTT 35 SECONDS (21-34) H 05/01/17 19:56 - Constitutional Appears: No Acute Distress - Head Exam Head Exam: NORMAL INSPECTION - Neurological Exam Neurological Exam: Alert, Awake, Oriented x3 Neuro motor strength exam: Left Upper Extremity: 5, Right Upper Extremity: 5, Left Lower Extremity: 5, Right Lower Extremity: 5 Additional comments: Right facial side numbness, but otherwise alert, oriented X3, Assessment and Plan (1) Right facial numbness Assessment & Plan: Case discussed with Dr. Dao, continue all current medical regimen. Recommend MRI of the brain with and without contrast to rule out either MS or Woodruff's Palsy. Pending HSV type 1 & 2. Status: Acute (2) Headache Assessment & Plan: Case discussed with Dr. Dao, recommend magnesiun 2 gm IVPB for one dose and decadron 10 mg IV for one dose. Status: Acute
[2017-05-03 06:59] LABS: BASO % 0.1 % (0.0-2.0); EOS % 0.1 % (0.0-4.0); HEMOGLOBIN 15.8 g/dL (12.0-18.0); LYMPH # 0.9 K/uL (1.0-4.3); LYMPH % 7.5 % (20.0-40.0); MEAN CELL VOLUME 85.7 fL (80.0-94.0); MEAN CORPUSCULAR HEMOGLOBIN 29.6 pg (27.0-31.0); MEAN CORPUSCULAR HGB CONC 34.6 g/dL (33.0-37.0); MEAN PLATELET VOLUME 9.9 fL (7.2-11.7); MONO # 0.1 K/uL (0.0-0.8); MONO % 1.1 % (0.0-10.0); NEUT # 10.6 K/uL (1.8-7.0); NEUT % 91.2 % (50.0-75.0); PLATELET COUNT 199 K/uL (130-400); RBC 5.34 Mil/uL (4.40-5.90); RED CELL DISTRIBUTION WIDTH 13.2 % (11.5-14.5); WHITE BLOOD COUNT 11.6 K/uL (4.8-10.8)
[2017-05-03 07:13] LABS: ALT/SGPT 78 U/L (21-72); AST/SGOT 35 U/L (17-59); BLOOD UREA NITROGEN 14 mg/dL (9-20); CALCIUM 8.9 mg/dl (8.6-10.4); GFR AFRICAN-AMERICAN > 60; GFR NON-AFRICAN AMERICAN > 60
[2017-05-03 08:43] LABS: MAGNESIUM 2.1 mg/dL (1.6-2.3)
[2017-05-03] MEDS ORDERED: Dexamethasone 4 mg/1 ml IVP ONE (08:45)
[2017-05-03] MEDS: Magnesium Sulfate 1 gm in D5W 1 GM/100 ML BAG IVPB SCH ×3 (08:59→09:26)
[2017-05-03] MEDS: Enoxaparin 40 mg Syringe SC SCH (09:26)
[2017-05-03 09:29] LABS: BANDS 5 % (0-2); LYMPHOCYTE 7 % (20-40); MONOCYTE 1 % (0-10); NEUTROPHIL 87 % (50-75); PLATELET ESTIMATE NORMAL (NORMAL); TOTAL CELLS COUNTED 100; TOXIC GRANULATION PRESENT
--- NOTE | 2017-05-03 09:31 | CP.PCM.PN ---
Subjective - Date & Time of Evaluation Date of Evaluation: 05/03/17 Time of Evaluation: 09:20 - Subjective Subjective: Patient was seen and examined by me He was admitted on 05/02 a CODE stroke was called due to right facial weakness/ numbness. He is pending MRI this morning. He was not in any acute distress when I saw him - he followed all commands and had good strength in all four extremities. He appears to have some weakness and parathesia on the right mouth and also right cheeks. Appreciate neurology seeing patient - per neurology this may or may not be Woodruff's Palsy. He will be getting MRI later today and also an echo. He already had a CT, CTA of neck Objective - Vital Signs/Intake and Output Vital Signs (last 24 hours): Temp Pulse Resp BP Pulse Ox 98 F 53 L 16 114/64 95 05/03/17 04:00 05/03/17 04:00 05/03/17 04:00 05/03/17 04:00 05/03/17 04:00 Intake and Output: 05/03/17 05/03/17 06:59 18:59 Intake Total 3440 Output Total 3850 Balance -410 - Medications Medications: Current Medications Acetaminophen (Tylenol 325mg Tab) 650 mg PO Q6 PRN PRN Reason: Headache Last Admin: 05/02/17 08:07 Dose: 650 mg Aspirin (Aspirin Chewable) 81 mg PO DAILY [facility] Last Admin: 05/03/17 09:26 Dose: 81 mg Enoxaparin Sodium (Lovenox) 40 mg SC DAILY [facility] Last Admin: 05/03/17 09:26 Dose: 40 mg Famotidine (Pepcid) 20 mg PO BID [facility] Last Admin: 05/03/17 09:26 Dose: 20 mg Sodium Chloride (Sodium Chloride 0.9%) 1,000 mls @ 100 mls/hr IV .Q10H [facility] Last Admin: 05/03/17 04:19 Dose: 100 mls/hr Magnesium Sulfate/Dextrose (Magnesium Sulfate 1 Gm/100 Ml D5w) 1 gm in 100 mls @ 300 mls/hr IVPB Q30M [facility] Stop: 05/03/17 10:04 Last Admin: 05/03/17 09:26 Dose: 300 mls/hr Rosuvastatin Calcium (Crestor) 10 mg PO HS [facility] - Labs Labs: 05/03/17 06:54 05/03/17 06:54 PT 11.8 SECONDS (9.7-12.2) 05/01/17 19:56 INR 1.0 05/01/17 19:56 APTT 35 SECONDS (21-34) H 05/01/17 19:56 - Constitutional Appears: Well, Non-toxic, No Acute Distress - Head Exam Head Exam: NORMAL INSPECTION, NORMOCEPHALIC - Eye Exam Eye Exam: EOMI, Normal appearance, PERRL - ENT Exam ENT Exam: Mucous Membranes Moist, Normal Exam - Respiratory Exam Respiratory Exam: Clear to Ausculation Bilateral, NORMAL BREATHING PATTERN - Cardiovascular Exam Cardiovascular Exam: REGULAR RHYTHM - GI/Abdominal Exam GI & Abdominal Exam: Soft, Normal Bowel Sounds - Neurological Exam Neurological Exam: Alert, Awake, Oriented x3 Neuro motor strength exam: Left Upper Extremity: 5, Right Upper Extremity: 5, Left Lower Extremity: 5, Right Lower Extremity: 5 Additional comments: Right face numbness and parathesia. Possible very minimal facial drooping on exam. He is able to ambulate without assistance - Psychiatric Exam Psychiatric exam: Normal Affect, Normal Mood - Skin Skin Exam: Normal Color, Warm Assessment and Plan - Assessment and Plan (Free Text) Assessment: 1. TIA/stroke - possible [place] Palsy 05/03/2017: At this time patient is pending MRI and also pending echo. He did well with PT On exam he is good strength, AAOx3, possible right facial nerve palsy On ASA, Statin, on IVF His CT of head, CTA of head and neck is stable. Cardiac enzymes negative as well. Neurovascular consulted, Dr. Woodward; help appreciated Neurology consulted, Dr. Gonzalez; help appreciated Lipid panel: TGs 193, total cholesterol 183, LDL 114, HDL 40 Neurology has ordered decardon - if this is [place]ruff Palsy this may help with the patient's symptoms 2. Chronic sinusitis Continue to monitor 3. Headache 05/03/2017: Neurology has ordered Magnesium 2, continue to monitor Blood pressure is stable. If MRI is negative, probably can slow down the IVF 4. GI/DVT ppx -SCDs -pepcid bid
[2017-05-03] MEDS ORDERED: Pneumococcal 23-Valent Vaccine IM ONE (11:16)
[2017-05-03] MEDS ORDERED: Influenza Vaccine 60 mcg/0.5 mL SYR (4YR UP) IM ONE (11:18)
--- NOTE | 2017-05-03 14:53 | MRI ---
PROCEDURE: MRI BRAIN WITH AND WITHOUT CONTRAST HISTORY: weakness/numbness COMPARISON: Noncontrast head CT from 05/01/2017 TECHNIQUE: Multiplanar, multisequence MR images of the brain were obtained with and without intravenous contrast enhancement. 16 mL Omniscan was injected intravenously. FINDINGS: HEMORRHAGE: None DWI: No evidence of an acute or early subacute infarction. BRAIN PARENCHYMA: Shankar-white matter differentiation is preserved. There is no mass, mass effect or abnormal extra-axial fluid collection. The midline sagittal structures are normal. ENHANCEMENT: No abnormal intracranial enhancement. VENTRICLES: The ventricles are normal in size, shape and configuration. CRANIUM: There is normal bone marrow signal pattern. ORBITS: Grossly unremarkable. PARANASAL SINUSES/MASTOIDS: There is moderate mucosal thickening in the left anterior ethmoid air cells and mild mucosal thickening in the remaining paranasal sinuses. There is trace right mastoid effusion. The left mastoid air cells are clear. VASCULAR SYSTEM: There are normal signal voids in the larger intracranial arteries. OTHER FINDINGS: None . IMPRESSION: No acute intracranial abnormality. Specifically, no evidence for acute infarction.
--- NOTE | 2017-05-03 21:43 | CARD ---
APPROVED REPORT EXAM: Two-dimensional and M-mode echocardiogram with Doppler and color Doppler. Other Information Quality : GoodRhythm : INDICATION CVA/TIA CODE STROKE 2D DIMENSIONS IVSd1.0 (0.7-1.1cm)LVDd5.0 (3.9-5.9cm) PWd0.8 (0.7-1.1cm)LVDs3.2 (2.5-4.0cm) FS (%) 35.7 %LVEF (%)65.0 (>50%) M-Mode DIMENSIONS Left Atrium (MM)4.34 (2.5-4.0cm)Aortic Root3.51 (2.2-3.7cm) Aortic Cusp Exc.2.35 (1.5-2.0cm) Mitral Valve MV E Hdughggt72.9cm/sMV A Keqaacle17.6cm/sE/A ratio1.0 TDI E/Lateral E'0.0E/Medial E'0.0 Tricuspid Valve TR Peak Maixnqdv620yv/sTR Peak Gr.[id number] LEFT VENTRICLE The left ventricle is normal size. There is normal left ventricular wall thickness. Left ventricle systolic function is normal. The Ejection Fraction is 60-65%. There is normal LV segmental wall motion. The left ventricular diastolic function is normal. RIGHT VENTRICLE The right ventricle is normal size. There is normal right ventricular wall thickness. The right ventricular systolic function is normal. ATRIA The left atrium size is normal. The right atrium size is normal. The interatrial septum is intact with no evidence for an atrial septal defect. AORTIC VALVE The aortic valve is normal in structure. No aortic regurgitation is present. There is no aortic valvular stenosis. MITRAL VALVE The mitral valve is normal in structure. There is no evidence of mitral valve prolapse. There is no mitral valve stenosis. Mitral regurgitation is mild. TRICUSPID VALVE The tricuspid valve is normal in structure. There is mild tricuspid regurgitation. Right ventricular systolic pressure is estimated at less than 30 mmHg. There is no pulmonary hypertension. PULMONIC VALVE The pulmonic valve is not well visualized. There is mild pulmonic valvular regurgitation. GREAT VESSELS The aortic root is normal in size. PERICARDIAL EFFUSION There is no significant pericardial effusion. <Conclusion> Left ventricle systolic function is normal. The Ejection Fraction is 60-65%. No aortic regurgitation is present. Mitral regurgitation is mild. There is mild tricuspid regurgitation. There is no pulmonary hypertension. There is mild pulmonic valvular regurgitation.
[2017-05-04 06:21] LABS: BASO % 0.2 % (0.0-2.0); HEMOGLOBIN 15.2 g/dL (12.0-18.0); LYMPH # 1.4 K/uL (1.0-4.3); LYMPH % 7.2 % (20.0-40.0); MEAN CELL VOLUME 85.9 fL (80.0-94.0); MEAN CORPUSCULAR HEMOGLOBIN 30.1 pg (27.0-31.0); MEAN CORPUSCULAR HGB CONC 35.1 g/dL (33.0-37.0); MEAN PLATELET VOLUME 10.1 fL (7.2-11.7); MONO % 5.4 % (0.0-10.0); NEUT # 16.9 K/uL (1.8-7.0); NEUT % 87.2 % (50.0-75.0); PLATELET COUNT 191 K/uL (130-400); RBC 5.05 Mil/uL (4.40-5.90); WHITE BLOOD COUNT 19.3 K/uL (4.8-10.8)
[2017-05-04 06:39] LABS: ALB/GLOB RATIO 1.1 (1.0-2.1); ALBUMIN 3.9 g/dL (3.5-5.0); ALT/SGPT 64 U/L (21-72); AST/SGOT 25 U/L (17-59); BLOOD UREA NITROGEN 12 mg/dL (9-20); CALCIUM 8.5 mg/dl (8.6-10.4); GFR AFRICAN-AMERICAN > 60; GFR NON-AFRICAN AMERICAN > 60; MAGNESIUM 2.4 mg/dL (1.6-2.3)
[2017-05-04 08:46] LABS: LYMPHOCYTE 13 % (20-40); MONOCYTE 3 % (0-10); NEUTROPHIL 84 % (50-75); TOTAL CELLS COUNTED 100
[2017-05-04 08:48] LABS: PLATELET ESTIMATE NORMAL (NORMAL)
[2017-05-04] MEDS: Enoxaparin 40 mg Syringe SC SCH (09:30)
[2017-05-04 12:34] VITALS: BP 108/59
[2017-05-04 12:42] VITALS: TEMP 98.4
[2017-05-04 13:43] VITALS: PULSE 62; RESP 14; O2SAT 95
--- NOTE | 2017-05-04 19:03 | CP.PCM.DIS ---
<Misty Mckee - Last Filed: 05/04/17 20:12> Provider - Provider Date of Admission: 05/02/17 00:28 Attending physician: Alcon Davison MD Consults: Dr. Feliberto Woodward Time Spent in preparation of Discharge (in minutes): 35 Diagnosis - Discharge Diagnosis (1) TIA (transient ischemic attack) Status: Acute (2) Headache Status: Acute (3) Prophylactic measure Status: Acute Hospital Course - Lab Results Lab Results: Micro Results 05/02/17 Unknown Nose MRSA Culture (Admit) - Final MRSA NOT DETECTED Most Recent Lab Values WBC 19.3 K/uL (4.8-10.8) H D 05/04/17 06:18 RBC 5.05 Mil/uL (4.40-5.90) 05/04/17 06:18 Hgb 15.2 g/dL (12.0-18.0) 05/04/17 06:18 Hct 43.4 % (35.0-51.0) 05/04/17 06:18 MCV 85.9 fL (80.0-94.0) 05/04/17 06:18 MCH 30.1 pg (27.0-31.0) 05/04/17 06:18 MCHC 35.1 g/dL (33.0-37.0) 05/04/17 06:18 RDW 13.0 % (11.5-14.5) 05/04/17 06:18 Plt Count 191 K/uL (130-400) 05/04/17 06:18 MPV 10.1 fL (7.2-11.7) 05/04/17 06:18 Neut % (Auto) 87.2 % (50.0-75.0) H 05/04/17 06:18 Lymph % (Auto) 7.2 % (20.0-40.0) L 05/04/17 06:18 [place] % (Auto) 5.4 % (0.0-10.0) 05/04/17 06:18 Eos % (Auto) 0.0 % (0.0-4.0) 05/04/17 06:18 Baso % (Auto) 0.2 % (0.0-2.0) 05/04/17 06:18 Neut # (Auto) 16.9 K/uL (1.8-7.0) H 05/04/17 06:18 Lymph # (Auto) 1.4 K/uL (1.0-4.3) 05/04/17 06:18 [place] # (Auto) 1.0 K/uL (0.0-0.8) H 05/04/17 06:18 Eos # (Auto) 0.0 K/uL (0.0-0.7) 05/04/17 06:18 Baso # (Auto) 0.0 K/uL (0.0-0.2) 05/04/17 06:18 Neutrophils % (Manual) 84 % (50-75) H 05/04/17 06:18 Band Neutrophils % 5 % (0-2) H 05/03/17 06:54 Lymphocytes % (Manual) 13 % (20-40) L 05/04/17 06:18 Monocytes % (Manual) 3 % (0-10) 05/04/17 06:18 Toxic Granulation Present 05/03/17 06:54 Platelet Estimate Normal (NORMAL) 05/04/17 06:18 RBC Morphology Normal 05/04/17 06:18 ESR 4 mm/hr (0-15) 05/02/17 17:07 PT 11.8 SECONDS (9.7-12.2) 05/01/17 19:56 INR 1.0 05/01/17 19:56 APTT 35 SECONDS (21-34) H 05/01/17 19:56 Sodium 140 mmol/L (132-148) 05/04/17 06:17 Potassium 4.2 mmol/L (3.6-5.2) 05/04/17 06:17 Chloride 105 mmol/L (98-107) 05/04/17 06:17 Carbon Dioxide 24 mmol/L (22-30) 05/04/17 06:17 Anion Gap 15 (10-20) 05/04/17 06:17 BUN 12 mg/dL (9-20) 05/04/17 06:17 Creatinine 0.8 mg/dL (0.8-1.5) 05/04/17 06:17 Est GFR ( Amer) > 60 05/04/17 06:17 Est GFR (Non-Af Amer) > 60 05/04/17 06:17 POC Glucose (mg/dL) 125 mg/dL (65-110) H 05/03/17 07:26 Random Glucose 120 mg/dL (75-110) H 05/04/17 06:17 Hemoglobin A1c 5.2 % (4.2-6.5) 05/01/17 19:56 Calcium 8.5 mg/dl (8.6-10.4) L 05/04/17 06:17 Phosphorus 3.1 mg/dL (2.5-4.5) 05/04/17 06:17 Magnesium 2.4 mg/dL (1.6-2.3) H 05/04/17 06:17 Total Bilirubin 0.7 mg/dL (0.2-1.3) 05/04/17 06:17 AST 25 U/L (17-59) 05/04/17 06:17 ALT 64 U/L (21-72) 05/04/17 06:17 Alkaline Phosphatase 76 U/L (38-126) 05/04/17 06:17 Total Creatine Kinase 78 U/L (55-170) 05/03/17 00:20 CK-MB (Mass) 0.56 ng/mL (0.0-3.38) 05/03/17 00:20 Troponin I < 0.0120 ng/mL (0.00-0.120) 05/03/17 00:20 C-React Prot High Sens 2.70 mg/L (1.00-3.00) 05/02/17 17:07 NT-Pro-B Natriuret Pep 15.3 pg/mL (0-450) 05/02/17 07:45 Total Protein 7.5 g/dL (6.3-8.3) 05/04/17 06:17 Albumin 3.9 g/dL (3.5-5.0) 05/04/17 06:17 Globulin 3.5 gm/dL (2.2-3.9) 05/04/17 06:17 Albumin/Globulin Ratio 1.1 (1.0-2.1) 05/04/17 06:17 Triglycerides 193 mg/dL (0-149) H 05/01/17 19:56 Cholesterol 183 mg/dL (0-199) 05/01/17 19:56 LDL Cholesterol Direct 114 mg/dL (0-129) 05/01/17 19:56 HDL Cholesterol 40 mg/dL (30-70) 05/01/17 19:56 Vitamin B12 456 pg/mL (239-931) 05/02/17 07:45 Free T4 0.75 ng/dL (0.78-2.19) L 05/02/17 20:12 Thyroxine (T4) 7.00 ug/dL (5.5-11.0) 05/02/17 07:45 Total T3 1.88 nmol/L (1.49-2.60) 05/02/17 07:45 TSH 3rd Generation 1.08 mIU/L (0.46-4.68) 05/02/17 20:12 RPR Nonreactive (NONREACTIVE) 05/02/17 17:07 Lyme Disease Screen <0.90 index 05/02/17 13:45 HIV 1&2 Antibody Screen Negative (NEGATIVE) 05/02/17 11:27 Blood Type O POSITIVE 05/01/17 19:56 Antibody Screen Negative 05/01/17 19:56 - Hospital Course Hospital Course: Upon admission: Patient is a 46 year old Yakut speaking male with no significant PMH who presents to the ED complaining of right facial numbness that started yesterday morning around 9 am while he was at work. Patient says he was not doing anything in particular when he started noticing right eye twitching and numbness from his eye to his cheek. Patient says he has never had this before. It has been unchanged since onset. Patient admits to occipital headache of 2 days duration, for which tylenol provided no relief. Patient admits to associated difficulty in pronouncing words but does not feel like his speech is slurred. He also admits to right shoulder numbness as if it is "asleep". Patient says he occasionally has b/l foot swelling at night but otherwise denies fever, chills, dizziness, changes in vision/hearing, difficulty swallowing, chest pain, SOB, palpitations, abdominal pain, n/v/d/c, changes in urination, and numbness/tingling/weakness/pain in his extremities other than described above. Hospital Course: Patient was admitted as a code stroke. Patient was given ASA in the ED and admitted to telemetry. Dr. Woodward, Dr. Gonzalez, and Dr. Dao were consulted. Patient was started on ASA and Crestor. CT head, CTA head/neck, and MRI were all negative for stroke. 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 Patient's headache was treated with magnesium and a dose of decadron per Dr. Dao's recommendations. Upon discharge: Patient stable for discharge per Dr. Richard and the neurology team. Patient was discharged on prednisone taper and atorvastatin for high cholesterol found during hospital stay. He was told to follow up in the [facility]. Please note that this is a summary of events. For more details, please see complete medical record. Discharge Exam - Head Exam Head Exam: NORMAL INSPECTION, NORMOCEPHALIC - Eye Exam Eye Exam: EOMI, Normal appearance, PERRL - Respiratory Exam Respiratory Exam: NORMAL BREATHING PATTERN, UNREMARKABLE - Cardiovascular Exam Cardiovascular Exam: REGULAR RHYTHM, +S1, +S2 - GI/Abdominal Exam GI & Abdominal Exam: Normal Bowel Sounds, Soft, Unremarkable - Neurological Exam Neurological exam: Alert, Oriented x3 - Psychiatric Exam Psychiatric exam: Normal Affect, Normal Mood - Skin Skin Exam: Dry, Intact, Normal Color, Warm Discharge Plan - Discharge Medications Prescriptions: Atorvastatin [Lipitor] 20 mg PO DAILY #30 tab - Follow Up Plan Condition: GOOD Disposition: HOME/ ROUTINE Instructions: Heart Healthy Diet, Low Cholesterol, Saturated Fat, and Trans Fat Diet , Stroke (DC), Transient Ischemic Attack (DC), Headache, Adult (DC), Dizziness, Nonvertigo, (DC), Atorvastatin, Prednisone Additional Instructions: Please follow up with your PCP or in the [facility] in the [facility] within 1 week of discharge. Please fill the prescriptions provided and take according to label instructions. If you experience new or worsening symptoms, please do not hesitate to return to the [facility] ER. Referrals: [facility] at [facility] [Outside] <Jeramie Richard H - Last Filed: 05/05/17 07:43> Provider - Provider Date of Admission: 05/02/17 00:28 Attending physician: Alcon Davison MD Hospital Course - Lab Results Lab Results: Micro Results 05/02/17 Unknown Nose MRSA Culture (Admit) - Final MRSA NOT DETECTED Most Recent Lab Values WBC 19.3 K/uL (4.8-10.8) H D 05/04/17 06:18 RBC 5.05 Mil/uL (4.40-5.90) 05/04/17 06:18 Hgb 15.2 g/dL (12.0-18.0) 05/04/17 06:18 Hct 43.4 % (35.0-51.0) 05/04/17 06:18 MCV 85.9 fL (80.0-94.0) 05/04/17 06:18 MCH 30.1 pg (27.0-31.0) 05/04/17 06:18 MCHC 35.1 g/dL (33.0-37.0) 05/04/17 06:18 RDW 13.0 % (11.5-14.5) 05/04/17 06:18 Plt Count 191 K/uL (130-400) 05/04/17 06:18 MPV 10.1 fL (7.2-11.7) 05/04/17 06:18 Neut % (Auto) 87.2 % (50.0-75.0) H 05/04/17 06:18 Lymph % (Auto) 7.2 % (20.0-40.0) L 05/04/17 06:18 [place] % (Auto) 5.4 % (0.0-10.0) 05/04/17 06:18 Eos % (Auto) 0.0 % (0.0-4.0) 05/04/17:18 Baso % (Auto) 0.2 % (0.0-2.0) 05/04/17 06:18 Neut # (Auto) 16.9 K/uL (1.8-7.0) H 05/04/17 06:18 Lymph # (Auto) 1.4 K/uL (1.0-4.3) 05/04/17 06:18 [place] # (Auto) 1.0 K/uL (0.0-0.8) H 05/04/17 06:18 Eos # (Auto) 0.0 K/uL (0.0-0.7) 05/04/17 06:18 Baso # (Auto) 0.0 K/uL (0.0-0.2) 05/04/17 06:18 Neutrophils % (Manual) 84 % (50-75) H 05/04/17 06:18 Band Neutrophils % 5 % (0-2) H 05/03/17 06:54 Lymphocytes % (Manual) 13 % (20-40) L 05/04/17 06:18 Monocytes % (Manual) 3 % (0-10) 05/04/17 06:18 Toxic Granulation Present 05/03/17 06:54 Platelet Estimate Normal (NORMAL) 05/04/17 06:18 RBC Morphology Normal 05/04/17 06:18 ESR 4 mm/hr (0-15) 05/02/17 17:07 PT 11.8 SECONDS (9.7-12.2) 05/01/17 19:56 INR 1.0 05/01/17 19:56 APTT 35 SECONDS (21-34) H 05/01/17 19:56 Sodium 140 mmol/L (132-148) 05/04/17 06:17 Potassium 4.2 mmol/L (3.6-5.2) 05/04/17 06:17 Chloride 105 mmol/L (98-107) 05/04/17 06:17 Carbon Dioxide 24 mmol/L (22-30) 05/04/17 06:17 Anion Gap 15 (10-20) 05/04/17 06:17 BUN 12 mg/dL (9-20) 05/04/17 06:17 Creatinine 0.8 mg/dL (0.8-1.5) 05/04/17 06:17 Est GFR ( Amer) > 60 05/04/17 06:17 Est GFR (Non-Af Amer) > 60 05/04/17 06:17 POC Glucose (mg/dL) 125 mg/dL (65-110) H 05/03/17 07:26 Random Glucose 120 mg/dL (75-110) H 05/04/17 06:17 Hemoglobin A1c 5.2 % (4.2-6.5) 05/01/17 19:56 Calcium 8.5 mg/dl (8.6-10.4) L 05/04/17 06:17 Phosphorus 3.1 mg/dL (2.5-4.5) 05/04/17 06:17 Magnesium 2.4 mg/dL (1.6-2.3) H 05/04/17 06:17 Total Bilirubin 0.7 mg/dL (0.2-1.3) 05/04/17 06:17 AST 25 U/L (17-59) 05/04/17 06:17 ALT 64 U/L (21-72) 05/04/17 06:17 Alkaline Phosphatase 76 U/L (38-126) 05/04/17 06:17 Total Creatine Kinase 78 U/L (55-170) 05/03/17 00:20 CK-MB (Mass) 0.56 ng/mL (0.0-3.38) 05/03/17 00:20 Troponin I < 0.0120 ng/mL (0.00-0.120) 05/03/17 00:20 C-React Prot High Sens 2.70 mg/L (1.00-3.00) 05/02/17 17:07 NT-Pro-B Natriuret Pep 15.3 pg/mL (0-450) 05/02/17 07:45 Total Protein 7.5 g/dL (6.3-8.3) 05/04/17 06:17 Albumin 3.9 g/dL (3.5-5.0) 05/04/17 06:17 Globulin 3.5 gm/dL (2.2-3.9) 05/04/17 06:17 Albumin/Globulin Ratio 1.1 (1.0-2.1) 05/04/17 06:17 Triglycerides 193 mg/dL (0-149) H 05/01/17 19:56 Cholesterol 183 mg/dL (0-199) 05/01/17 19:56 LDL Cholesterol Direct 114 mg/dL (0-129) 05/01/17 19:56 HDL Cholesterol 40 mg/dL (30-70) 05/01/17 19:56 Vitamin B12 456 pg/mL (239-931) 05/02/17 07:45 Free T4 0.75 ng/dL (0.78-2.19) L 05/02/17 20:12 Thyroxine (T4) 7.00 ug/dL (5.5-11.0) 05/02/17 07:45 Total T3 1.88 nmol/L (1.49-2.60) 05/02/17 07:45 TSH 3rd Generation 1.08 mIU/L (0.46-4.68) 05/02/17 20:12 RPR Nonreactive (NONREACTIVE) 05/02/17 17:07 Lyme Disease Screen <0.90 index 05/02/17 13:45 HSV I IgG Ab 51.40 index H 05/02/17 13:45 HSV II IgG <0.90 index 05/02/17 13:45 HIV 1&2 Antibody Screen Negative (NEGATIVE) 05/02/17 11:27 Blood Type O POSITIVE 05/01/17 19:56 Antibody Screen Negative 05/01/17 19:56 Attending/Attestation - Attestation I have personally seen and examined this patient.: Yes I have fully participated in the care of the patient.: Yes I have reviewed all pertinent clinical information, including history, physical exam and plan: Yes Notes (Text): 05/05/17 07:30 Medical attending: Patient was seen and examined by me. Agree with the above note by the resident The patient had family member at bedside. The patient was ok with the family being present The patient on exam was able to ambulate very well on exam. The patient had repeat imaging on the brain including MRI and he did not have CVA. The numbness and parathesia he had on the right face and under the right eye probably is some type of nerver irritation such as Reardan Palsy. The patient did report some improvment after getting decadron and Mg IV - which was ordered intially for more probably headache that he was having. The patient will be on a tapering prednisone dose thank you Jeramie Richard
--- NOTE | 2017-05-06 17:59 | CARD ---
APPROVED REPORT EKG Measurement Heart [id number] <Conclusion> Sinus bradycardia Nonspecific ST abnormality Abnormal ECG
--- NOTE | 2017-05-06 18:01 | CARD ---
APPROVED REPORT EKG Measurement Heart [id number] [place] [id number] <Conclusion> Sinus bradycardia Otherwise normal ECG
== END 2017-05-04 15:35 | disposition home or self-care (01) | DRG 19 ==
LOC: C.ER 18:55 → C.9E 05-02 00:28 → C.9I 05-02 14:50
PROVIDERS: ADMIT Family Medicine; ATTEND Family Medicine
DX: G51.0 Bell's palsy (principal); E78.00 Pure hypercholesterolemia, unspecified; R29.701 NIHSS score 1; J32.9 Chronic sinusitis, unspecified; R51 Headache